=== PATIENT | male | born 1965 | race African-American/Black ===

== ENCOUNTER 2019-10-05 06:44 | Emergency (ER) | payer OTHER ==
[~2019-10-05] VITALS: Ht 172.7 cm; Wt 83.5 kg
[~2019-10-05 06:44] MED LIST: "\\\"CHOLESTEROL MED\\\""; PERCOCET 5-3251 EACH PO; PREDNISONE 20 M20 M1 PO; PROVENTIL HFA6.7 G1 INH; TRAZODONE 150150 M1 PO; ZOCOR20 MG PO; [UNRECOGNIZED DRUG - REMARK]
[2019-10-05] MEDS ORDERED: NORCO 5-325 TA1 EAC1 PO (08:02)
[2019-10-05] MEDS ORDERED: PREDNISONE50 MG PO (08:02)
[2019-10-05] MEDS ORDERED: FLEXERIL PO (08:02)
[2019-10-05] MEDS ORDERED: VENTOLIN HFA 1818 GM INH (08:02)
[2019-10-05 08:09] VITALS: BP 124/67
== END 2019-10-05 08:10 | disposition home or self-care (01) ==
LOC: M.ERS 06:44
DX: M54.5 Low back pain (principal); J45.909 Unspecified asthma, uncomplicated; E78.5 Hyperlipidemia, unspecified; Z88.0 Allergy status to penicillin; Z91.018 Allergy to other foods

== ENCOUNTER 2019-12-22 05:27 | Emergency (ER) | payer OTHER ==
[~2019-12-22] VITALS: Ht 172.7 cm; Wt 86.2 kg
[~2019-12-22 05:27] MED LIST changes: +FLEXERIL PO; +NORCO 5-325 TA1 EAC1 PO; +PREDNISONE50 MG PO; +VENTOLIN HFA 1818 GM INH
[2019-12-22 05:50] LABS: URINE BILIRUBIN NEGATIVE (Negative); URINE BLOOD 3+ (Negative); URINE CLARITY CLEAR; URINE COLOR YELLOW; URINE GLUCOSE-RANDOM NEGATIVE (Negative); URINE KETONES NEGATIVE (Negative); URINE LEUKOCYTES-REFLEX NEGATIVE (Negative); URINE NITRITE-REFLEX NEGATIVE (Negative); URINE PROTEIN 1+ (Negative); URINE SPECIFIC GRAVITY >= 1.030 (1.005-1.030); URINE UROBILINOGEN 0.2 E.U./dl (0.2-1.0)
[2019-12-22 06:06] LABS: ABSOLUTE EOSINOPHILS 0.2 thou/uL (0.0-0.7); ABSOLUTE LYMPHOCYTES 1.8 thou/uL (0.8-5.3); ABSOLUTE MONOCYTES 0.7 thou/uL (0.0-1.2); ABSOLUTE NEUTROPHILS 3.5 thou/uL (1.6-8.1); BASOPHILS 0.6 %; EOSINOPHILS 2.9 %; HEMATOCRIT 41.8 % (42.0-52.0); HEMOGLOBIN 14.2 gm/dL (14.0-18.0); LYMPHOCYTES 28.7 %; MCH 30.4 pg (26.0-34.0); MCHC 33.9 g/dL (28.0-37.0); MCV 89.6 fL (80.0-100.0); MONOCYTES 10.8 %; MPV 8.9 fl. (7.2-11.1); NUCLEATED RBCS 0 /100WBC; PLATELET COUNT* 193 thou/uL (150-400); RBC 4.66 mil/uL (4.50-6.00); RDW-CV 13.8 % (10.5-14.5); WBC 6.2 thou/uL (4.0-11.0)
[2019-12-22 06:10] LABS: CALCIUM 9.7 mg/dL (8.5-10.1); CREATININE 1.3 mg/dL (0.6-1.3); POTASSIUM 3.7 mmol/L (3.5-5.1)
[2019-12-22 06:12] LABS: BACTERIA-REFLEX 1-9 Few /HPF (None Seen); CASTS None Seen /LPF (None Seen); CRYSTALS None Seen /LPF (None Seen); MUCUS 0-3 Light strn/LPF (None Seen); SQUAMOUS 0-3 Few /LPF (0-3); URINE WBC-REFLEX 0-5 Rare /HPF (0-5)
[2019-12-22] MEDS ORDERED: IBUPROFEN 800800 M1 PO (07:40)
[2019-12-22] MEDS ORDERED: FLOMAX0.4 MG PO (07:40)
[2019-12-22] MEDS ORDERED: NORCO 5-325 TA1 EAC1 PO (07:40)
[2019-12-22] MEDS ORDERED: BACTRIM DS TAB1 EAC1 PO (07:40)
[2019-12-22] MEDS ORDERED: ZOFRAN ODT4 MG DISSOLVE (07:40)
[2019-12-22 08:06] VITALS: BP 145/83
== END 2019-12-22 08:07 | disposition home or self-care (01) ==
LOC: M.ERS 05:27
PROVIDERS: Emergency Medicine
DX: N20.2 Calculus of kidney with calculus of ureter (principal); E78.5 Hyperlipidemia, unspecified; J45.909 Unspecified asthma, uncomplicated; Z88.0 Allergy status to penicillin; Z91.018 Allergy to other foods